=== PATIENT | female | born 1970 | race Caucasian/White ===

== ENCOUNTER → 2019-11-27 09:56 | Outpatient (CLI) | payer OTHER, SELFPAY ==
--- NOTE | ~2019-11-27 | MM_ITS ---
EXAMINATION: MM screening [facility] w davida HISTORY: Screening mammogram TECHNIQUE: Craniocaudal and mediolateral oblique 3-D tomosynthesis images were obtained and synthetic 2-D images were generated. CAD analysis was submitted and interpreted. COMPARISON: 11/20/2018, 10/03/2017, 09/28/2016 bilateral digital screening mammogram examinations BREAST PARENCHYMAL COMPOSITION: The breasts are heterogeneously dense, which may obscure small masses . FINDINGS: Stable circumscribed approximately 7.5 mm upper outer quadrant right breast probable benign intramammary lymph node. An approximately 7 mm circumscribed probable benign right lymph node is not ed posteriorly in the upper outer left breast. There are scattered bilateral benign calcifications. T here is no evidence of suspicious mass, calcification, or architectural distortion to suggest maligna ncy in either breast. There has been no suspicious interval change. IMPRESSION: 1. No mammographic evidence of malignancy. 2. Recommend routine screening mammography in one year. BI-RADS Category 2: Benign finding(s). Reviewed, dictated and finalized at location A. RVISOR ASSEMBLY
== END ==
PROVIDERS: Visit Provider Obstetrics & Gynecology
DX: Z12.31 Encounter for screening mammogram for malignant neoplasm of breast (principal)
CPT/HCPCS: 77063; 77067

== ENCOUNTER 2020-04-27 09:30 | Outpatient (RCR) | payer OTHER, SELFPAY ==
[2020-02-24 10:21] VITALS: BMI 42.1
[2020-04-27 09:28] VITALS: BMI 42.9
[2020-04-27 09:30] VITALS: BMI 42.9
== END 2020-05-24 23:59 | disposition home or self-care (01) ==
LOC: ANHDMC 09:30
DX: E66.9 Obesity, unspecified (principal); Z71.3 Dietary counseling and surveillance; M25.562 Pain in left knee; Z68.41 Body mass index [BMI] 40.0-44.9, adult
CPT/HCPCS: 97802; 97803

== ENCOUNTER → 2020-11-29 10:08 | Outpatient (CLI) | payer OTHER, SELFPAY ==
--- NOTE | ~2020-11-29 | MM_ITS ---
EXAMINATION: MM screening [facility] w davida HISTORY: Screening mammogram TECHNIQUE: Craniocaudal and mediolateral oblique 3-D tomosynthesis images were obtained and synthetic 2-D images were generated. CAD analysis was submitted and interpreted. COMPARISON: November 2019, November 20, 2018, October 03, 2017 bilateral digital screening mammogram examinations BREAST PARENCHYMAL COMPOSITION: There are scattered areas of fibroglandular density. FINDINGS: Stable benign circumscribed intramammary lymph node, upper outer right breast. There is no evidence of suspicious mass, calcification, or architectural distortion to suggest malignancy in eith er breast. There has been no suspicious interval change. IMPRESSION: 1. No mammographic evidence of malignancy. 2. Recommend routine screening mammography in one year. BI-RADS Category 2: Benign finding(s). Reviewed, dictated and finalized at location A. SCOURING VAT TENDER
== END ==
PROVIDERS: PCP Family Medicine Sports Medicine; Visit Provider Obstetrics & Gynecology
DX: Z12.31 Encounter for screening mammogram for malignant neoplasm of breast (principal)
CPT/HCPCS: 77063; 77067

== ENCOUNTER → 2020-11-29 10:14 | Outpatient (CLI) | payer OTHER, SELFPAY ==
--- NOTE | ~2020-11-29 | XR_ITS ---
XR knee LT 3V 11/29/2020 11:07 Indication: Acute left knee pain Procedure: 3 views left knee Comparison: No prior studies for comparison. Findings: Mild patellofemoral compartment osteoarthritis. No fracture or traumatic malalignment. No s ignificant joint effusion. No focal soft tissue abnormality. Impression: 1: Mild patellofemoral compartment osteoarthritis. Reviewed, dictated and finalized at location B. AID MACHINE OPERATOR Impression: 1: Mild patellofemoral compartment osteoarthritis.
== END ==
PROVIDERS: PCP Family Medicine Sports Medicine; Visit Provider Family Medicine Sports Medicine
DX: M17.12 Unilateral primary osteoarthritis, left knee (principal)
CPT/HCPCS: 73562

== ENCOUNTER → 2021-04-06 09:28 | Outpatient (CLI) | payer OTHER, SELFPAY ==
--- NOTE | ~2021-04-06 | MR_ITS ---
EXAMINATION: MR knee LT wo con DATE: 04/06/2021 10:16 INDICATION: Left knee osteoarthritis TECHNIQUE: Magnetic resonance imaging (MRI) of the left knee was performed without intravenous contra st. Sequences included coronal PD-weighted FSE, coronal PD-weighted FS FSE, sagittal T2-weighted FSE , sagittal PD-weighted FS FSE and axial PD weighted fat saturated FSE. COMPARISON: None. FINDINGS: Medial compartment: Medial meniscus is normal. Partial-thickness cartilage loss with smooth chondral surface and without degenerative subchondral changes at the medial half of the anterior weightbearing medial femoral cond yle. Lateral compartment: There is subtle increased signal extending to contact the inferior articular surface along the anteri or horn of the lateral meniscus which extends from near the free edge medially more peripherally in t he lateral aspect of the anterior horn. This could represent a parrot configuration tear however the anterior horn of the lateral meniscus is a location of known decreased specificity for MRI diagnosis of meniscal tears. Mild partial-thickness chondral fissuring at the posterior medial aspect of the la teral tibial plateau. Patellofemoral compartment: Extensive patellar chondral ulceration with partial thickness cartilage loss and chondral surface irr egularity. Small region of deeper chondral fissuring with mild underlying subarticular cystic change at the central aspect of the lateral facet. Trochlear cartilage is relatively preserved. Ligaments and tendons: Anterior and posterior cruciate ligaments are normal. The medial collateral ligament and fibular silverio ateral ligament complex are normal. The extensor mechanism is normal. The visualized medial and later al hamstring tendons as well as the iliotibial band are normal. Fluid: Physiologic amount of fluid in the joint space. No loose osteochondral bodies identified. Small Salter 's cyst measuring 2.3 x 0.8 x 0.5 cm. Osseous/other: Geographic red marrow re-expansion in the diaphyseal and metaphyseal regions of the distal femur and proximal tibia and fibula.. No fracture or pathologic marrow replacing process. No fracture or pathol ogic marrow replacing process. IMPRESSION: 1. Possible vertical parrot beak configuration tear of the anterior horn of the lateral meniscus. The degree of increased signal is relatively low and is also normal location of decreased specificity fo r assessment of meniscal tear. 2. Mild tricompartmental osteoarthritis at the left knee with small regions of high-grade chondromala cornell with underlying cystic change at the lateral patellar facet. 3. Small Salter's cyst. Reviewed, dictated and finalized at location A. IMPRESSION: 1. Possible vertical parrot beak configuration tear of the anterior horn of the lateral meniscus. The degree of increased signal is relatively low and is also normal location of decreased specificity for assessment of meniscal tear. 2. Mild tricompartmental osteoarthritis at the left knee with small regions of high-grade chondromalacia with underlying cystic change at the lateral patellar facet. 3. Small Salter's cyst.
== END ==
PROVIDERS: PCP Family Medicine Sports Medicine; Visit Provider Family Medicine Sports Medicine
DX: M17.12 Unilateral primary osteoarthritis, left knee (principal); M71.22 Synovial cyst of popliteal space [Baker], left knee
CPT/HCPCS: 73721

== ENCOUNTER → 2022-01-22 12:55 | Outpatient (CLI) | payer OTHER, SELFPAY ==
--- NOTE | ~2022-01-22 | MM_ITS ---
EXAMINATION: MM screening [facility] BI w davida HISTORY: Screening TECHNIQUE: Craniocaudal and mediolateral oblique 3-D tomosynthesis images were obtained and synthetic 2-D images were generated. CAD analysis was submitted and interpreted. COMPARISON: Comparison to multiple prior studies sequentially, with oldest reviewed study dated 09/19. BREAST PARENCHYMAL COMPOSITION: There are scattered areas of fibroglandular density. FINDINGS: There is no evidence of suspicious mass, calcification, or architectural distortion to sugg est malignancy in either breast. There has been no suspicious interval change. IMPRESSION: 1. No mammographic evidence of malignancy. 2. Recommend routine screening mammography in one year. BI-RADS Category 1: Negative Reviewed, dictated and finalized at location A.
== END ==
PROVIDERS: PCP Obstetrics & Gynecology; Visit Provider Obstetrics & Gynecology
DX: Z12.31 Encounter for screening mammogram for malignant neoplasm of breast (principal)
CPT/HCPCS: 77063; 77067

== ENCOUNTER 2022-11-15 03:00 | Day surgery (SDC) | payer OTHER, SELFPAY ==
[2022-10-28 14:21] VITALS: BMI 45.6
--- NOTE | 2022-11-14 14:26 | PM.HPGS ---
History of Present Illness History of Present Illness Consent: Risks, benefits, and alternatives have been discussed and questions answered. Patient agrees to proceed with procedure. Chief complaint: neoplasm screening Narrative: Danielle Mares is a 52 year old female referred for colon cancer screening. Review of Systems Review of Systems: All systems reviewed & are unremarkable except as noted in HPI and below PMFSH Family History Family History Father Family history of diabetes mellitus in first degree relative Family history of heart disease in male family member before age 55 Social History Social History Smoking status: Never smoker Alcohol intake: current Drinks per week: 2 Substance use: never Substance use type: does not use Living arrangements: alone Spiritual care concerns: No Meds Home Medications and Allergies Home Medications Medication Instructions Recorded Confirmed Type cholecalciferol (vitamin D3) 25 25 mcg PO DAILY 10/28/22 11/15/22 History mcg (1,000 unit) tablet (Vitamin D3) escitalopram oxalate 20 mg tablet 20 mg PO DAILY 10/28/22 11/15/22 History loratadine 10 mg tablet (Claritin) 10 mg PO DAILY 10/28/22 11/15/22 History mecobalamin (vitamin B12) 1,000 1,000 mcg PO DAILY 10/28/22 11/15/22 History mcg chewable tablet omega 1-fwf-php-fish oil 1,000 mg 1 cap PO BID 10/28/22 11/15/22 History (120 mg-180 mg) capsule (Fish Oil) Allergies Allergy/AdvReac Type Severity Reaction Status Date / Time codeine AdvReac Unknown N&V Verified 11/15/22 07:38 Exam Const: General: alert Orientation/consciousness: patient oriented x3 Resp: Auscultation: clear to auscultation bilaterally Cardio: Rhythm: regular rhythm GI: GI Palp: Yes Soft to palpation and No Tenderness to palpation present (GI) Neuro: General: patient oriented x3 Assessment and Plan Assessment and plan (1) Colon cancer screening: Code(s): Z12.11 - Encounter for screening for malignant neoplasm of colon Status: Acute Assessment and Plan: Colonoscopy with possible biopsy or polypectomy or cautery or injection of substances.
[2022-11-15 07:49] VITALS: BP 137/82; PULSE 85; RESP 20; TEMP 36.3; O2SAT 100
[2022-11-15] MEDS: LACTATED RINGERS 1,000 ML 150 ML IV CONT (08:05)
--- NOTE | 2022-11-15 08:11 | WPDANESEPPF ---
Anes - Initial Pre Proc Eval Procedure: Operation Date: 11/15/22 08:30 Proposed Procedures p Screening Colonoscopy - Leeroy Lobo MD Date/Time: 11/15/22 08:11 Surgeon: Leeroy Lobo MD Pre Op Diagnosis: neoplasm screening Patient Data Age: 52 Gender: F Height: 1.57 m Weight: 112.4 kg Last Vital Signs Temp 36.3 C L 11/15/22 07:49 Pulse 85 11/15/22 07:49 Resp 20 11/15/22 07:49 BP 137/82 11/15/22 07:49 Pulse Ox 100 11/15/22 07:49 O2 Del Method Room Air 11/15/22 07:49 Allergies Allergy/AdvReac Type Severity Reaction Status Date / Time codeine AdvReac Unknown N&V Verified 11/15/22 07:38 Home Medications Medication Instructions Recorded Confirmed Type cholecalciferol (vitamin D3) 25 25 mcg PO DAILY 10/28/22 11/15/22 History mcg (1,000 unit) tablet (Vitamin D3) escitalopram oxalate 20 mg tablet 20 mg PO DAILY 10/28/22 11/15/22 History loratadine 10 mg tablet (Claritin) 10 mg PO DAILY 10/28/22 11/15/22 History mecobalamin (vitamin B12) 1,000 1,000 mcg PO DAILY 10/28/22 11/15/22 History mcg chewable tablet omega 6-wfd-zwq-fish oil 1,000 mg 1 cap PO BID 10/28/22 11/15/22 History (120 mg-180 mg) capsule (Fish Oil) Patient hx anesthesia problems: none Family hx anesthesia problems: none Results Review: All pre-operative results and documents have been reviewed as part of the pre-operative evaluation. [facility], [facility] Past Medical History Medical History (Updated 11/15/22 @ 08:13 by Napoleon Johnson MD) Anxiety Asthma Chronic GERD Hyperlipidemia Morbid obesity with BMI of 45.0-49.9, adult Family History Family History Father Family history of diabetes mellitus in first degree relative Family history of heart disease in male family member before age 55 Social History Social History Smoking status: Never smoker Alcohol intake: current Drinks per week: 2 Substance use: never Substance use type: does not use Living arrangements: alone Spiritual care concerns: No Anes - Eval Final PreProcedure Day of Procedure 11/15/22 08:11 Patient weight: morbidly obese Heart: regular rate and rhythm Lungs: clear to auscultation and normal air movement Airway: Mallampati scale class II Neurological: alert and oriented Last oral intake: >/= 8 hours ASA classification: III Emergent: no Anesthetic plan: proceed Anesthesia type and monitoring: general GIVS Results Review: All pre-operative results and documents have been reviewed as part of the pre-operative evaluation. Informed Consent: The patient's anesthetic plan and its attendant risks and benefits were discussed with the patient/family/POA. Questions were solicited and answers provided to the satisfaction of the patient/family/POA.
[2022-11-15 08:38] VITALS: BP 127/83; PULSE 60; RESP 22; TEMP 36.3; O2SAT 100
[2022-11-15 08:48] VITALS: BP 134/75; PULSE 75; RESP 20; TEMP 36.3; O2SAT 100
[2022-11-15 08:58] VITALS: BP 134/63; PULSE 68; RESP 19; TEMP 36.3; O2SAT 100
== END 2022-11-15 09:05 | disposition home or self-care (01) ==
PROVIDERS: PCP Family Medicine Sports Medicine; Visit Provider Internal Medicine Gastroenterology
PROC: 0DJD8ZZ Inspection of Lower Intestinal Tract, Via Natural or Artificial Opening Endoscopic (ICD-10-PCS; CPT 45378; principal; 2022-11-15 08:30)
DX: Z12.11 Encounter for screening for malignant neoplasm of colon (principal); K57.30 Diverticulosis of large intestine without perforation or abscess without bleeding; F41.9 Anxiety disorder, unspecified; E66.01 Morbid (severe) obesity due to excess calories; Z68.42 Body mass index [BMI] 45.0-49.9, adult
CPT/HCPCS: 45378; J2704; J7120

== ENCOUNTER → 2023-01-24 07:26 | Outpatient (CLI) | payer OTHER, SELFPAY ==
--- NOTE | ~2023-01-24 | MM_ITS ---
EXAMINATION: MM screening [facility] w davida HISTORY: Screening TECHNIQUE: Craniocaudal and mediolateral oblique 3-D tomosynthesis images were obtained and synthetic 2-D images were generated. CAD analysis was submitted and interpreted. COMPARISON: Comparison to multiple prior studies sequentially, with oldest reviewed study dated 09/19. BREAST PARENCHYMAL COMPOSITION: Breast composed of scattered areas of fibroglandular density FINDINGS: Focal left breast asymmetry laterally on CC view is unchanged from prior studies. There is no evidence of suspicious mass, calcification, or architectural distortion to suggest malignancy in e ither breast. There has been no suspicious interval change. IMPRESSION: 1. No mammographic evidence of malignancy. 2. Recommend routine screening mammography in one year. BI-RADS Category 1: Negative Reviewed, dictated and finalized at location A.
== END ==
PROVIDERS: PCP Family Medicine Sports Medicine; Visit Provider Obstetrics & Gynecology
DX: Z12.31 Encounter for screening mammogram for malignant neoplasm of breast (principal)
CPT/HCPCS: 77063; 77067

== ENCOUNTER 2024-02-13 10:59 | Outpatient (CLI) | payer OTHER, SELFPAY ==
--- NOTE | ~2024-02-13 | MM_ITS ---
EXAMINATION: MM screening [facility] w davida HISTORY: Screening TECHNIQUE: Craniocaudal and mediolateral oblique 3-D tomosynthesis images were obtained and synthetic 2-D images were generated. CAD analysis was submitted and interpreted. COMPARISON: January 24, 2023, January 22, 2022 bilateral screening mammogram examinations BREAST PARENCHYMAL COMPOSITION: There are scattered areas of fibroglandular density. FINDINGS: New irregular approximately 7.5 x 14 mm mass is noted in the upper central right breast. No suspicious mass, architectural distortion, malignant calcification, skin thickening or retraction or significant new or developing density of either breast is noted otherwise. IMPRESSION: 1. New 7.5 x 14 mm irregular mass in the upper central right breast 2. Diagnostic right mammogram and right breast ultrasound examination is recommended. BI-RADS Category 0: Incomplete: Needs additional imaging evaluation. Reviewed, dictated and finalized at location A. IMPRESSION: 1. New 7.5 x 14 mm irregular mass in the upper central right breast 2. Diagnostic right mammogram and right breast ultrasound examination is recomm ended. BI-RADS Category 0: Incomplete: Needs additional imaging evaluation.
== END 2024-02-13 11:00 ==
LOC: MICIMG 11:00
PROVIDERS: PCP Family Medicine Sports Medicine; Visit Provider Obstetrics & Gynecology
DX: Z12.31 Encounter for screening mammogram for malignant neoplasm of breast (principal); R92.8 Other abnormal and inconclusive findings on diagnostic imaging of breast
CPT/HCPCS: 77063; 77067